=== PATIENT | female | born 1945 | race Asian ===

== ENCOUNTER 2020-03-02 13:38 | Emergency (ER) | payer MEDICARE, OTHER ==
[~2020-03-02] VITALS: Ht 167.6 cm; Wt 69.5 kg
[2020-03-02 13:50] VITALS: BP 126/68
--- NOTE | 2020-03-02 14:21 | PHYS DOC ---
Past History Past Medical History: Cancer, Diabetes, Hypertension Past Surgical History: Cancer Surgery, Other Additional Past Surgical Histo: Right breast cancer Alcohol Use: None Adult General Chief Complaint Chief Complaint: DENTAL PROBLEM HPI HPI Patient is a 74-year-old female presents to the emergency department complaining of pain and a bloody sore to the right side inside of her mouth. Patient states she noticed this at approximately noon today, patient states that she initially felt a lump inside her mouth and pushed it out and noticed some blood come out. Patient states it did not bleed much. Patient is adamant that she did not bite the inside of her cheek when she was eating. Patient states that her pain level is very low according probably a 1/10 on a 1-10 pain scale. Patient denies any shortness of breath, cough, swelling, nasal congestion, cough, chest pain, ear pain, changes in taste or changes in smell. Patient denies any other physical complaints or physical illnesses. Patient denies COVID-19 symptoms and does not wish to be treated or checked today for COVID-19 virus. Review of Systems Review of Systems 14 body systems of review of systems have been reviewed. See HPI for pertinent positives and negative responses, otherwise all other systems are negative, nonpertinent or noncontributory. Current Medications Current Medications Patient reports taking rosuvastatin 10 mg daily, Metformin 500 mg twice daily, metoprolol 75 mg daily, anastrozole 1 mg daily. Allergies Allergies Allergies Coded Allergies Type Severity Reaction Last Updated Verified Penicillins Allergy Unknown 03/02/20 Yes Physical Exam Physical Exam Constitutional: Well developed, well nourished, no acute distress, non-toxic appearance. HENT: Normocephalic, atraumatic, bilateral external ears normal, oropharynx moist, no oral exudates, nose normal. Linear hematoma across right side buccal mucosa without bleeding, no purulent drainage measuring approximately 4 cm horizontal with dentition. Patient has intact nonbroken upper and lower dentures. No swelling appreciated, oropharynx within normal limits, no postnasal drip appreciated. Eyes: PERRLA, EOMI, conjunctiva normal, no discharge. Neck: Normal range of motion, no tenderness, supple, no stridor. Cardiovascular:Heart rate regular rhythm, no murmur Lungs & Thorax: Bilateral breath sounds clear to auscultation Abdomen: Bowel sounds normal, soft, no tenderness, no masses, no pulsatile masses. Skin: Warm, dry, no erythema, no rash. Back: No tenderness, no CVA tenderness. Extremities: No tenderness, no cyanosis, no clubbing, ROM intact, no edema. Neurologic: Alert and oriented X 3, normal motor function, normal sensory function, no focal deficits noted. Psychologic: Affect normal, judgement normal, mood normal. Current Patient Data Vital Signs Vital Signs Date Time Temp Pulse Resp B/P (MAP) Pulse Ox O2 Delivery O2 Flow Rate FiO2 03/02/20 13:50 97.8 84 16 126/68 (87) 97 Room Air EKG EKG [] Radiology/Procedures Radiology/Procedures [] Heart Score Risk Factors: Risk Factors: DM, Current or recent (<one month) smoker, HTN, HLP, family history of CAD, obesity. Risk Scores: Risk Factors: DM, Current or recent (<one month) smoker, HTN, HLP, family history of CAD, obesity. Course & Med Decision Making Course & Med Decision Making Pertinent Labs and Imaging studies reviewed. (See chart for details) 73-year-old female presents emergency department with complaints of feeling a lump in the right side of her cheek that she pushed out and noticed some minor bleeding that had resolved prior to her arrival to the emergency department. Physical examination of oral mucosa on the right buccal mucosa consistent with a bite type trauma however patient adamantly denies biting her in her mouth while eating. Patient states this happened around noon. Patient states this is happened 4 times in her life and she has never been able to find out why this happens. Discussed with patient oral buccal mucosa trauma, using warm salt water swishes and spit over the next few days along with oral ibuprofen for discomfort. Patient is to follow-up with her primary care physician this week for possible referral to a ear nose throat specialist. Patient gave verbal understanding of discharge instructions, discharge medication use, follow-up with primary care physician. Patient was in no pain during exam, patient is safe to be discharged home. Patient had no further questions or concerns. Patient discharged to home without incident. Diagnosis right-sided buccal mucosal oral trauma, low probability of parotid gland stone, unlikely sublingual gland or submandibular gland stone, unlikely infectious process. Dragon Disclaimer Dragon Disclaimer This electronic medical record was generated, in whole or in part, using a voice recognition dictation system. Departure Departure: Impression: Primary Impression: Biting of oral mucosa Disposition: 01 DC HOME SELF CARE/HOMELESS Condition: GOOD Referrals: PCP,UNKNOWN (PCP) Additional Instructions: Please use warm salt water to swish and spit while oral irritation persists, you can use over the counter ibuprofen for oral discomfort, please see your doctor soon for possible referral to ENT specialist. Please return the emergency room for worsening symptoms or other concerns. EMERGENCY DEPARTMENT GENERAL DISCHARGE INSTRUCTIONS Thank you for coming to [facility] (ED) today and trusting us with you care. We trust that you had a positivie experience in our Emergency Department. If you wish to speak to the department management, you may call the director at [phone]. YOUR FOLLOW UP INSTRUCTIONS ARE FOLLOWS: 1. Do you have a private Doctor? If you do not have a private doctor, please ask for a resource list of physicians or clinics that may be able to assist you with follow up care. 2. The Emergency Physician has interpreted your x-rays. The X-Ray specialist will also review them. If there is a change in the findings, you will be notified in 48 hours when at all possible. 3. A lab test or culture has been done, your results will be reviewed and you will be notified if you need a change in treatment. ADDITIONAL INSTRUCTIONS AND INFORMATION: 1. Your care today has been supervised by a physician who is specially trained in emergency care. Many problems require more than one evaluation for a complete diagnosis and treatment. We recommend that you schedule your follow up appointment as recommended to ensure complete treatment of you illness or injury. If you are unable to obtain follow up care and continue to have a problem, or if your condition worsens, we recommend that you return to the ED. 2. We are not able to safely determine your condition over the phone nor are we able to give sound medical advice over the phone. For these safety reasons, if you call for medical advice we will ask you to come to the ED for further evaluation. 3. If you have any questions regarding these discharge instructions please call the ED at [phone]. SAFETY INFORMATION: In the interest of safety, wellness, and injury prevention; we encourage you to wear your sealbelt, if you smoke; quite smoking, and we encourage family to use a protective helmet for bicycling and other sporting events that present an increased risk for head injury. IF YOUR SYMPTOMS WORSEN OR NEW SYMPTOMS DEVELOP, OR YOU HAVE CONCERNS ABOUT YOUR CONDITION; OR IF YOUR CONDITION WORSENS WHILE YOU ARE WAITING FOR YOUR FOLLOW UP APPOINTMENT; EITHER CONTACT YOUR PRIMARY CARE DOCTOR, THE PHYSICIAN WHOSE NAME AND NUMBER YOU WERE GIVEN, OR RETURN TO THE ED IMMEDIATELY. SASHA WALDRON APRN Mar 02, 2020 14:21
== END 2020-03-02 14:26 | disposition home or self-care (01) ==
LOC: ER 13:38
DX: K13.1 Cheek and lip biting (principal); E11.9 Type 2 diabetes mellitus without complications; I10 Essential (primary) hypertension; Z88.0 Allergy status to penicillin
CPT/HCPCS: 99281

== ENCOUNTER 2020-04-01 11:19 | Emergency (ER) | payer MEDICARE, OTHER ==
[~2020-04-01] VITALS: Ht 160 cm; Wt 70.2 kg
[2020-04-01 11:25] VITALS: BP 142/70
[2020-04-01] MEDS ORDERED: CYCLOBENZAPRINE 10 MG TABLET. PO ONE (12:15)
[2020-04-01] MEDS ORDERED: KETOROLAC 60 MG/2 ML VIAL. IM ONE (12:15)
--- NOTE | 2020-04-01 12:49 | PHYS DOC ---
Past History Past Medical History: Cancer, Diabetes, Hypertension Past Surgical History: Cancer Surgery, Other Additional Past Surgical Histo: Right breast cancer Alcohol Use: None General Adult EDM: Chief Complaint: UPPER EXTREMITY PAIN HPI: HPI: Patient is a 74-year-old female who presents with right shoulder pain. Patient states that she has had 2 shoulder surgeries in the past and has chronic pain but today it is worse than usual. Patient reports the pain is in her right shoulder and painful with movement. Patient reports taking Motrin at home with little relief. Patient denies injury. Review of Systems: Review of Systems: Constitutional: Denies fever or chills Eyes: Denies change in visual acuity HENT: Denies nasal congestion or sore throat Respiratory: Denies cough or shortness of breath Cardiovascular: Denies chest pain or edema GI: Denies abdominal pain, nausea, vomiting, bloody stools or diarrhea : Denies dysuria Musculoskeletal: Denies back pain or joint pain, reports right shoulder pain Integument: Denies rash Neurologic: Denies headache, focal weakness or sensory changes Endocrine: Denies polyuria or polydipsia Lymphatic: Denies swollen glands Psychiatric: Denies depression or anxiety Current Medications: Current Meds: Current Medications Medications (Trade) Dose Ordered Sig/Brian Start Time Stop Time Status Last Admin Dose Admin Cyclobenzaprine HCl (Flexeril) 10 mg 1X ONCE 04/01/20 12:15 04/01/20 12:37 DC Ketorolac Tromethamine (Toradol Im) 60 mg 1X ONCE 04/01/20 12:15 04/01/20 12:37 DC Allergies: Allergies: Allergies Coded Allergies Type Severity Reaction Last Updated Verified Penicillins Allergy Unknown 03/02/20 Yes Physical Exam: PE: Constitutional: Well developed, well nourished, no acute distress, non-toxic appearance. [] HENT: Normocephalic, atraumatic, bilateral external ears normal, oropharynx moist, no oral exudates, nose normal. [] Eyes: PERRLA, EOMI, conjunctiva normal, no discharge. [] Neck: Normal range of motion, no tenderness, supple, no stridor. [] Cardiovascular:Heart rate regular rhythm, no murmur [] Lungs & Thorax: Bilateral breath sounds clear to auscultation [] Abdomen: Bowel sounds normal, soft, no tenderness, no masses, no pulsatile masses. [] Skin: Warm, dry, no erythema, no rash. [] Back: No tenderness, no CVA tenderness. [] Extremities: No tenderness, no cyanosis, no clubbing, ROM intact, pain with range of motion to right shoulder Neurologic: Alert and oriented X 3, normal motor function, normal sensory function, no focal deficits noted. [] Psychologic: Affect normal, judgement normal, mood normal. [] Current Patient Data: Vital Signs: Vital Signs Date Time Temp Pulse Resp B/P (MAP) Pulse Ox O2 Delivery O2 Flow Rate FiO2 04/01/20 11:25 98.1 81 16 142/70 (94) 97 Room Air EKG: EKG: [] Radiology/Procedures: Radiology/Procedures: [] Heart Score: Risk Factors: Risk Factors: DM, Current or recent (<one month) smoker, HTN, HLP, family history of CAD, obesity. Risk Scores: Score 0 - 3: 2.5% MACE over next 6 weeks - Discharge Home Score 4 - 6: 20.3% MACE over next 6 weeks - Admit for Clinical Observation Score 7 - 10: 72.7% MACE over next 6 weeks - Early Invasive Strategies Course & Med Decision Making: Course & Med Decision Making Pertinent Labs and Imaging studies reviewed. (See chart for details) [] Patient is a 74-year-old female who presents with right shoulder pain. Patient states that she has had 2 shoulder surgeries in the past and has chronic pain but today it is worse than usual. Patient reports the pain is in her right shoulder and painful with movement. Patient reports taking Motrin at home with little relief. Right shoulder x-ray ordered, Flexeril and Toradol given for pain. Range of motion intact but patient complains of pain with movement. Cap refill less than 2sec. Right shoulder Xray shows, Right reverse total shoulder arthroplasty with questionable loosening at the proximal aspect of the medial humeral component, suboptimally evaluated. Correlate clinically and consider repeat radiographs for further evaluation if indicated. No abnormalities were found on xray, hardware still in place from previous surgery. Please follow-up with Ortho for further evaluation. At home use ice to area of discomfort and continue to use ibuprofen and Tylenol for pain. Dragon Disclaimer: Dragon Disclaimer: This electronic medical record was generated, in whole or in part, using a voice recognition dictation system. Departure Departure: Impression: Primary Impression: Right shoulder pain Qualified Codes: M25.511 - Pain in right shoulder; G89.29 - Other chronic pain Disposition: 01 DC HOME SELF CARE/HOMELESS Condition: GOOD Referrals: PCP,UNKNOWN (PCP) Patient Instructions: Shoulder Pain, [id number] Additional Instructions: We did an x-ray today of your right shoulder. No abnormalities were found. Please follow-up with Ortho for further evaluation. At home use ice to area of discomfort and continue to use ibuprofen and Tylenol for pain. EMERGENCY DEPARTMENT GENERAL DISCHARGE INSTRUCTIONS Thank you for coming to [facility] (ED) today and trusting us with you care. We trust that you had a positivie experience in our Emergency Department. If you wish to speak to the department management, you may call the director at [phone]. YOUR FOLLOW UP INSTRUCTIONS ARE FOLLOWS: 1. Do you have a private Doctor? If you do not have a private doctor, please ask for a resource list of physicians or clinics that may be able to assist you with follow up care. 2. The Emergency Physician has interpreted your x-rays. The X-Ray specialist will also review them. If there is a change in the findings, you will be notified in 48 hours when at all possible. 3. A lab test or culture has been done, your results will be reviewed and you will be notified if you need a change in treatment. ADDITIONAL INSTRUCTIONS AND INFORMATION: 1. Your care today has been supervised by a physician who is specially trained in emergency care. Many problems require more than one evaluation for a complete diagnosis and treatment. We recommend that you schedule your follow up appointment as recommended to ensure complete treatment of you illness or injury. If you are unable to obtain follow up care and continue to have a problem, or if your condition worsens, we recommend that you return to the ED. 2. We are not able to safely determine your condition over the phone nor are we able to give sound medical advice over the phone. For these safety reasons, if you call for medical advice we will ask you to come to the ED for further evaluation. 3. If you have any questions regarding these discharge instructions please call the ED at [phone]. SAFETY INFORMATION: In the interest of safety, wellness, and injury prevention; we encourage you to wear your sealbelt, if you smoke; quite smoking, and we encourage family to use a protective helmet for bicycling and other sporting events that present an increased risk for head injury. IF YOUR SYMPTOMS WORSEN OR NEW SYMPTOMS DEVELOP, OR YOU HAVE CONCERNS ABOUT YOUR CONDITION; OR IF YOUR CONDITION WORSENS WHILE YOU ARE WAITING FOR YOUR FOLLOW UP APPOINT MENT; EITHER CONTACT YOUR PRIMARY CARE DOCTOR, THE PHYSICIAN WHOSE NAME AND NUMBER YOU WERE GIVEN, OR RETURN TO THE ED IMMEDIATELY. Scripts Cyclobenzaprine Hcl (CYCLOBENZAPRINE HCL) 10 Mg Tablet 10 MG PO TID PRN for muscle pain, #15 TAB Prov: LUIS MAYES APRN 04/01/20 LUIS MAYES APRN Apr 01, 2020 12:49
--- NOTE | 2020-04-01 13:23 | RAD ---
EXAMINATION: XR SHOULDER_RIGHT 2+ VIEWS CLINICAL HISTORY: Reason: SHOULDER PAIN / Spl. Instructions: / History: TECHNIQUE: XR SHOULDER_RIGHT 2+ VIEWS Number of Images/Views: 3 COMPARISON: None FINDINGS: Limited evaluation secondary to suboptimal patient positioning. Visualized portions of the reverse to ann shoulder arthroplasty appear intact with no evidence of dislocation. Lucency suggested at the bon e prosthesis interface along the medial proximal humeral component, but this is incompletely evaluate d. Metaglene and screws poorly evaluated. No acute fracture. Mild acromioclavicular degenerative mauricio ges. Right axillary surgical clips. IMPRESSION: Right reverse total shoulder arthroplasty with questionable loosening at the proximal aspect of the m edial humeral component, suboptimally evaluated. Correlate clinically and consider repeat radiographs for further evaluation if indicated. Electronically signed by: Erik Noriega DO (04/01/2020 1:20 PM) TUCKER
[2020-04-01] MEDS ORDERED: CYCL-331 PO (13:54)
== END 2020-04-01 13:57 | disposition home or self-care (01) ==
LOC: ER 11:19
DX: M25.511 Pain in right shoulder (principal); G89.29 Other chronic pain; I10 Essential (primary) hypertension; E11.9 Type 2 diabetes mellitus without complications; Z88.0 Allergy status to penicillin
CPT/HCPCS: 73030; 96372; 99283; J1885

== ENCOUNTER 2020-05-24 10:54 | Emergency (ER) | payer MEDICARE, OTHER ==
[~2020-05-24] VITALS: Ht 160 cm; Wt 70.2 kg
[~2020-05-24 10:54] MED LIST: CYCL-331 PO
[2020-05-24 11:00] VITALS: BP 143/74
--- NOTE | 2020-05-24 12:24 | PHYS DOC ---
Past History Past Medical History: Cancer, Diabetes, High Cholesterol, Hypertension Past Surgical History: Cancer Surgery, Other Additional Past Surgical Histo: R. MASTECTOMY Alcohol Use: None Adult General Chief Complaint Chief Complaint: RING REMOVAL [facility] Patient is a 74-year-old female who presents to the emergency room complaining of ring stuck on her finger. She states that sometimes her hand swells due to arthritis. She has no other complaints. She just would like the ring removed. Review of Systems Review of Systems Complete ROS is negative unless otherwise documented in HPI Allergies Allergies Allergies Coded Allergies Type Severity Reaction Last Updated Verified Penicillins Allergy Unknown 05/24/20 Yes Physical Exam Physical Exam General: Awake, alert, NAD. Well Nourished, well hydrated. Cooperative HEENT: Atraumatic, EOMI, PERRL, airway patent, moist oral mucosa Neck: Supple, trachea midline Respiratory: CTA bilaterally, normal effort, no wheezing/crackles CV: RRR, no murmur, cap refill <2 GI: Soft, nondistended, nontender, no masses MSK: Minor swelling to the hand with ring in place Skin: Warm, dry, intact Neuro: A&O x3, speech NL, sensory and motor grossly intact, no focal deficits Psych: Normal affect, normal mood, not suicidal or homicidal Current Patient Data Vital Signs Vital Signs Date Time Temp Pulse Resp B/P (MAP) Pulse Ox O2 Delivery O2 Flow Rate FiO2 05/24/20 11:00 98.5 84 18 143/74 (97) 96 Room Air EKG EKG [] Radiology/Procedures Radiology/Procedures [] Heart Score Risk Factors: Risk Factors: DM, Current or recent (<one month) smoker, HTN, HLP, family history of CAD, obesity. Risk Scores: Risk Factors: DM, Current or recent (<one month) smoker, HTN, HLP, family history of CAD, obesity. Course & Med Decision Making Course & Med Decision Making Pertinent Labs and Imaging studies reviewed. (See chart for details) And was removed. Hand appears normal. Patient has full range of motion and no skin degradation. Patient's test results and vitals while in the ED were fully reviewed and discussed with the patient. Patient is stable and at this time does not need admission to the hospital. We have discussed strict return precautions and the importance of following up with their Primary Care Physician. Patient stated understanding and was given an opportunity to ask any questions. Patient is in agreement with plan. Dragon Disclaimer Dragon Disclaimer This electronic medical record was generated, in whole or in part, using a voice recognition dictation system. Departure Departure: Impression: Primary Impression: External constriction of finger Disposition: 01 DC HOME SELF CARE/HOMELESS Condition: STABLE Referrals: PCP,UNKNOWN (PCP) Additional Instructions: You were seen today for ring removal. MADELINE ALBRECHT MD May 24, 2020 12:24
== END 2020-05-24 12:35 | disposition home or self-care (01) ==
LOC: ER 10:54
DX: S60.445A External constriction of left ring finger, initial encounter (principal); E11.9 Type 2 diabetes mellitus without complications; E78.00 Pure hypercholesterolemia, unspecified; I10 Essential (primary) hypertension; Z85.9 Personal history of malignant neoplasm, unspecified; Z98.890 Other specified postprocedural states; Z88.0 Allergy status to penicillin; X58.XXXA Exposure to other specified factors, initial encounter; Y93.89 Activity, other specified; Y92.89 Other specified places as the place of occurrence of the external cause; Y99.8 Other external cause status
CPT/HCPCS: 99281

== ENCOUNTER 2020-10-19 16:47 | Emergency (ER) | payer MEDICARE, OTHER ==
[~2020-10-19] VITALS: Ht 167.6 cm; Wt 68.5 kg
[2020-10-19 17:21] VITALS: BP 146/68
--- NOTE | 2020-10-19 17:43 | PHYS DOC ---
Past History Past Medical History: Cancer, Diabetes, High Cholesterol, Hypertension Additional Past Medical Histor: C SECTION, HYSTER APPY Past Surgical History: Appendectomy, Cancer Surgery, Hysterectomy Additional Past Surgical Histo: R. MASTECTOMY Alcohol Use: None General Adult EDM: Chief Complaint: DENTAL PROBLEM HPI: HPI: Patient is a 75-year-old female coming in for Concerns over bleeding and soreness over her right buccal mucosa. Patient states she felt some swelling and was squeezing it and expressed some dark blood and blood clots. Denies any injury. Says she has had this happen several times in her life but is unclear whether she has ever been checked out for. Patient d oes not speak Ecuadorean well and history is somewhat limited. Patient has a primary care provider but cannot get into them for 5 to 6 days and was concerned that she was having a stroke due to a family history of stroke. Patient currently has dentures and denies grinding her teeth at night. Patient states symptoms have started even prior to having dentures. Review of Systems: Review of Systems: All other systems within normal limits except for as noted in the HPI Allergies: Allergies: Allergies Coded Allergies Type Severity Reaction Last Updated Verified Penicillins Allergy Unknown 05/24/20 Yes Physical Exam: PE: Constitutional: Well developed, well nourished, no acute distress, non-toxic appearance. [] HENT: Normocephalic, atraumatic, bilateral external ears normal, nose normal. No swelling or mass in right buccal mucosa, bruising on mucosa without any signs of active bleeding, blood clots, or purulent drainage. [] Eyes: PERRLA, conjunctiva normal, no discharge. [] Neck: No rigidity, supple, no stridor. [] Cardiovascular: Regular rate and rhythm, brisk cap refill [] Lungs & Thorax: Non labored symmetric respirations, no tachypnea or respiratory distress [] Abdomen: Soft, nondistended. Skin: Warm, dry, no erythema, no rash. [] Back: Unremarkable Extremities: No deformities, range of motion grossly intact, no lower extremity edema [] Neurologic: Alert and oriented X 3, no focal deficits noted. [] Psychologic: Affect normal, judgement normal, mood normal. [] Current Patient Data: Vital Signs: Vital Signs Date Time Temp Pulse Resp B/P (MAP) Pulse Ox O2 Delivery O2 Flow Rate FiO2 10/19/20 17:21 97.9 20 146/68 97 Room Air EKG: EKG: [] Radiology/Procedures: Radiology/Procedures: [] Heart Score: C/O Chest Pain: No Risk Factors: Risk Factors: DM, Current or recent (<one month) smoker, HTN, HLP, family history of CAD, obesity. Risk Scores: Score 0 - 3: 2.5% MACE over next 6 weeks - Discharge Home Score 4 - 6: 20.3% MACE over next 6 weeks - Admit for Clinical Observation Score 7 - 10: 72.7% MACE over next 6 weeks - Early Invasive Strategies Course & Med Decision Making: Course & Med Decision Making Reassured patient that she is not having a stroke. Discussed follow-up with primary care for possible biopsy when lesion returns, and that likely accidental trauma from biting mucosa. Dragon Disclaimer: Dragon Disclaimer: This electronic medical record was generated, in whole or in part, using a voice recognition dictation system. Departure Departure: Impression: Primary Impression: Mucosal bleeding Disposition: HOME / SELF CARE / HOMELESS Condition: STABLE Referrals: PCP,UNKNOWN (PCP) Patient Instructions: Mouth Injury, Generic Additional Instructions: Follow-up with your primary care provider or possibly dentist for possible biopsy to identify any underlying pathology in the tissue IMER WILLIAMSON MD Oct 19, 2020 17:43
== END 2020-10-19 17:58 | disposition home or self-care (01) ==
LOC: ER 16:47
DX: R04.89 Hemorrhage from other sites in respiratory passages (principal); E11.9 Type 2 diabetes mellitus without complications; E78.00 Pure hypercholesterolemia, unspecified; I10 Essential (primary) hypertension; Z88.0 Allergy status to penicillin
CPT/HCPCS: 99281

== ENCOUNTER → 2021-01-19 | Outpatient (CLI) | payer MEDICARE, OTHER ==
[~2021-01-19] MED LIST changes: +ALBU2.5V8 IH; +BENZ200C47 PO; -CYCL-331 PO; +CYCL10TA19 PO; +PRED20TA PO
--- NOTE | 2021-01-19 14:28 | RAD ---
EXAM: Left hand, 3 views. HISTORY: Pain. COMPARISON: None. FINDINGS: 3 views of the left hand are obtained. There is no acute fracture, dislocation or subluxati on. There is a chronic corticated ossicle at the base of the first distal phalanx, likely due to a ch ronic fragmented spur. There is mild degenerative spurring involving the fourth distal interphalangea l joint. IMPRESSION: No acute osseous finding. Electronically signed by: Aarti Cain MD (01/19/2021 2:26 PM) [id number]
== END ==
LOC: RAD 13:46
PROVIDERS: ATTEND Family Medicine
DX: M77.8 Other enthesopathies, not elsewhere classified (principal); M25.442 Effusion, left hand
CPT/HCPCS: 73130

== ENCOUNTER 2021-01-29 00:21 | Emergency (ER) | payer MEDICARE, OTHER ==
[~2021-01-29] VITALS: Ht 167.6 cm; Wt 68.5 kg
[~2021-01-29 00:21] MED LIST changes: -ALBU2.5V8 IH; -BENZ200C47 PO; -PRED20TA PO
--- NOTE | 2021-01-29 00:34 | PHYS DOC ---
Past History Past Medical History: Cancer, Diabetes, High Cholesterol, Hypertension Additional Past Medical Histor: C SECTION, HYSTER APPY Past Surgical History: Appendectomy, Cancer Surgery, , Hysterectomy Additional Past Surgical Histo: R. MASTECTOMY Alcohol Use: None General Adult EDM: Chief Complaint: CHEST PAIN HPI: HPI: Patient is a [age] year old [sex] who presents with [] Review of Systems: Review of Systems: Constitutional: Denies fever or chills Eyes: Denies redness or eye pain HENT: Denies nasal congestion or sore throat Respiratory: Denies cough or shortness of breath Cardiovascular: Denies chest pain or palpitations GI: Denies abdominal pain, nausea, or vomiting : Denies dysuria or hematuria Musculoskeletal: Denies back pain or joint pain Integument: Denies rash or skin lesions Neurologic: Denies headache, focal weakness or sensory changes Complete systems were reviewed and found to be within normal limits, except as documented in this note. Current Medications: Current Meds: Current Medications Medications (Trade) Dose Ordered Sig/Brian Start Time Stop Time Status Last Admin Dose Admin Aspirin (John Aspirin) 325 mg 1X ONCE 01/29/21 00:30 01/29/21 00:31 UNV Fentanyl Citrate (Fentanyl 2ml Vial) 25 mcg 1X ONCE 01/29/21 00:30 01/29/21 00:31 UNV Sodium Chloride 1,000 ml @ 1,000 mls/hr 1X ONCE 01/29/21 00:30 01/29/21 01:29 UNV Allergies: Allergies: Allergies Coded Allergies Type Severity Reaction Last Updated Verified Penicillins Allergy Unknown 05/24/20 Yes Physical Exam: PE: Constitutional: Well developed, well nourished, no acute distress, non-toxic appearance HENT: Normocephalic, atraumatic Eyes: PERRL, EOMI, conjunctiva normal, no discharge Neck: Normal range of motion, no tenderness, supple Lungs & Thorax: No respiratory distress, equal chest rise and fall Abdomen: Soft, no tenderness Skin: Warm, dry, no erythema, no rash Back: No tenderness, no CVA tenderness Extremities: No tenderness, ROM intact, no edema Neurologic: Alert and oriented X 3, normal motor function, normal sensory function, no focal deficits noted Psychologic: Affect normal, judgment normal Current Patient Data: Vital Signs: Vital Signs Date Time Temp Pulse Resp B/P (MAP) Pulse Ox O2 Delivery O2 Flow Rate FiO2 01/29/21 00:24 97.9 93 24 161/77 (105) 100 Room Air EKG: EKG: @0025 NSR at 90bpm, NO ST elevation, QRS 92ms, QT/QTc 384/474ms, baseline artifact noted to I-aVF. @0110 NSR at 92bpm, NO ST elevation, QRS 94ms, QT/QTc 370/463ms, baseline artifact again noted to I-aVF, no significant change from prior Radiology/Procedures: Radiology/Procedures: PROCEDURE: CT ANGIOGRAPHY CHEST PQRS Compliance Statement: One or more of the following individualized dose reduction techniques were utilized for this examination: 1. Automated exposure control 2. Adjustment of the mA and/or kV according to patient size 3. Use of iterative reconstruction technique CTA CHEST 01/29/2021 1:11 AM INDICATION: Right chest pain, pleuritic COMPARISON: None available TECHNIQUE: Axial CT images of the chest were obtained after the intravenous administration of nonionic contrast. Coronal and sagittal reformats are provided. Maximum intensity projection images of the thoracic vasculature are provided. FINDINGS: The thyroid gland is normal in appearance. There are no pathologically enlarged axillary, mediastinal or hilar lymph nodes. Calcified mediastinal and right hilar lymph nodes suggest sequela prior granulomatous exposure. The heart size is within normal limits. No significant pericardial effusion. Thoracic aorta is normal in course and caliber. Calcified plaque identified along the thoracic aorta. There is adequate opacification of the pulmonary arterial system. There there are no filling defects within the pulmonary arterial system to suggest acute or chronic pulmonary embolus. 7 mm solid noncalcified pulmonary nodule identified left costophrenic angle laterally (series 6, image 104). 9 mm groundglass nodule identified within the left upper lobe major fissure (series 6, image 37). There are no pulmonary in filtrates. There are no pleural effusions. Mild interstitial prominence noted. No pneumothorax. Calcified pleural plaques suggestive sequela of prior asbestos exposure. Visualized portions of the upper abdomen are within normal limits. Right shoulder arthroplasty changes are present. IMPRESSION: There is no evidence for acute or chronic pulmonary embolism. 7 mm solid noncalcified pulmonary nodule identified in the lateral left lower lobe. Fleischner guidelines for incidentally detected pulmonary nodules suggests CT chest at 3-6 months, then consider CT at 18-24 months for multiple solid noncalcified pulmonary nodules 6-8 mm in size. Mild bronchial wall thickening compatible with nonspecific bronchitis. Mild interstitial prominence may reflect mild developing interstitial edema versus interstitial pneumonitis. Calcified pleural plaques suggestive of sequela prior asbestos exposure. Electronically signed by: Michelle Dupree MD (01/29/2021 1:57 AM) [facility] Heart Score: C/O Chest Pain: Yes HEART Score for Chest Pain: HEART Score for Chest Pain Response (Comments) Value History Slighlty/Non-Suspicious 0 ECG Normal 0 Age > 65 2 Risk Factors 1 or 2 Risk Factors 1 Troponin < Normal Limit 0 Total 3 Risk Factors: Risk Factors: DM, Current or recent (<one month) smoker, HTN, HLP, family history of CAD, obesity. Risk Scores: Score 0 - 3: 2.5% MACE over next 6 weeks - Discharge Home Score 4 - 6: 20.3% MACE over next 6 weeks - Admit for Clinical Observation Score 7 - 10: 72.7% MACE over next 6 weeks - Early Invasive Strategies Course & Med Decision Making: Course & Med Decision Making Pertinent Labs and Imaging studies reviewed. (See chart for details) Patient stable for discharge with outpatient follow-up with PCP. Discussed findings and plan with patient and family, who acknowledge understanding and agreement. Mary Grace Disclaimer: Mary Grace Disclaimer: This electronic medical record was generated, in whole or in part, using a voice recognition dictation system. Departure Departure: Impression: Primary Impression: Atypical chest pain Additional Impressions: Bronchitis Hypokalemia Pulmonary nodule Disposition: HOME / SELF CARE / HOMELESS Condition: STABLE Referrals: PCP,UNKNOWN (PCP) Patient Instructions: Acute Bronchitis, [id number]-Iult, Chest Pain (Nonspecific), [id number], Hypokalemia, Potassium Content of Foods, Pulmonary Nodule, [id number] Additional Instructions: Increase diet to include foods that are rich in potassium. Please have your provider recheck your potassium levels. You have also been given a copy of your CT results regarding a pulmonary nodule noted on your imaging. This will require future re-evaluation. Please give copy to your family physician for future re-imaging. Scripts Benzonatate (BENZONATATE) 200 Mg Capsule 1 CAP PO PRN TID PRN for cough, #30 CAP 0 Refills Prov: SASHA BIRMINGHAM DO 01/29/21 Albuterol Sulfate (PROAIR HFA INHALER) 8.5 Gm Hfa.aer.ad 2 PUFF IH PRN Q4-6HRS PRN for wheezing, #1 INHALER 0 Refills Prov: SASHA BIRMINGHAM DO 01/29/21 Prednisone (PREDNISONE) 20 Mg Tablet 2 TAB PO DAILY for Bronchitis for 4 Days, #8 TAB Start this prescription tomorrow, Tuesday01/30/21 Prov: SASHA BIRMINGHAM DO 01/29/21 SASHA BIRMINGHAM DO Jan 29, 2021 00:34
[2021-01-29] MEDS ORDERED: CONTRAST GIVEN. MC PRN (00:45)
[2021-01-29 00:55] LABS: BASO % 1 % (0-3); EOS # 0.2 x10^3/uL (0.0-0.7); EOS % 3 % (0-3); HEMATOCRIT 39.9 % (36.0-47.0); LYMPH # 2.6 x10^3/uL (1.0-4.8); LYMPH % 42 % (24-48); MEAN CORPUSCULAR HEMOGLOBIN 29 pg (25-35); MEAN CORPUSCULAR HGB CONC 33 g/dL (31-37); MEAN CORPUSCULAR VOLUME 88 fL (79-100); MONO # 0.6 x10^3/uL (0.0-1.1); MONO % 10 % (0-9); NEUT # 2.8 x10^3uL (1.8-7.7); NEUT % 45 % (31-73); PLATELET COUNT 181 x10^3/uL (140-400); RED BLOOD COUNT 4.53 x10^6/uL (3.50-5.40); RED CELL DISTRIBUTION WIDTH 13.6 % (11.5-14.5); WHITE BLOOD COUNT 6.2 x10^3/uL (4.0-11.0)
[2021-01-29] MEDS ORDERED: IOHEXOL 350 MG/ML 100 ML VIAL. IV ONE (01:00)
[2021-01-29] MEDS ORDERED: IV NORMAL SALINE 1,000ML 1,000 ML IV ONE (01:00)
[2021-01-29] MEDS ORDERED: ASPIRIN 325 MG TABLET PO ONE (01:00)
[2021-01-29 01:03] LABS: CALCIUM 8.6 mg/dL (8.5-10.1); CREATININE 0.6 mg/dL (0.6-1.0); GFR 97.7; POTASSIUM 3.1 mmol/L (3.5-5.1)
[2021-01-29 01:12] LABS: BILIRUBIN,URINE NEG (NEG); CLARITY,URINE CLEAR; COLOR,URINE YELLOW; GLUCOSE,URINE NEG (NEG)
[2021-01-29 01:13] LABS: BACTERIA,URINE 0 /HPF (0-FEW); NITRITE,URINE NEG (NEG); RBC,URINE OCC /HPF (0-2); SQUAMOUS EPITHELIAL CELL,UR OCC /LPF; UROBILINOGEN,URINE 0.2 mg/dL (0.2 mg/dL); WBC,URINE 0 /HPF (0-4)
[2021-01-29 01:21] LABS: ALBUMIN 3.8 g/dL (3.4-5.0); ALBUMIN/GLOBULIN RATIO 1.1 (1.0-1.7); MAGNESIUM 2.1 mg/dL (1.8-2.4); TOTAL BILIRUBIN 0.4 mg/dL (0.2-1.0); TOTAL PROTEIN 7.4 g/dL (6.4-8.2)
--- NOTE | 2021-01-29 01:21 | EKG ---
[address] [address] Test Date: 2021-01-29 Test Time: 01:10:05 Pat Name: DARWIN HERRERA Department: Room: Gender: F Ocular Care Technologist: LUÍS : 1945 Requested By: SASHA BIRMINGHAM Order Number: [id number] Reading MD: Noah Perdue Measurements Intervals [place] Rate: 92 P: 78 IN: 142 QRS: 0 QRSD: 94 T: 32 QT: 370 QTc: 463 Interpretive Statements SINUS RHYTHM LEFTWARD AXIS T ABNORMALITY IN ANTEROSEPTAL LEADS ABNORMAL ECG Electronically Signed On 02-02-2021 10:01:06 TEXTILE MACHINE MAINTENANCE MECHANIC by Noah Perdue
[2021-01-29] MEDS ORDERED: POTASSIUM CHLORIDE 20 MEQ TABLET.ER. PO ONE (01:30)
--- NOTE | 2021-01-29 01:59 | RAD ---
PQRS Compliance Statement: One or more of the following individualized dose reduction techniques were utilized for this examinat ion: 1. Automated exposure control 2. Adjustment of the mA and/or kV according to patient size 3. Use of iterative reconstruction technique CTA CHEST 01/29/2021 1:11 AM INDICATION: Right chest pain, pleuritic COMPARISON: None available TECHNIQUE: Axial CT images of the chest were obtained after the intravenous administration of nonioni c contrast. Coronal and sagittal reformats are provided. Maximum intensity projection images of the t horacic vasculature are provided. FINDINGS: The thyroid gland is normal in appearance. There are no pathologically enlarged axillary, mediastinal or hilar lymph nodes. Calcified mediastinal and right hilar lymph nodes suggest sequela prior granul omatous exposure. The heart size is within normal limits. No significant pericardial effusion. Thorac ic aorta is normal in course and caliber. Calcified plaque identified along the thoracic aorta. There is adequate opacification of the pulmonary arterial system. There there are no filling defects within the pulmonary arterial system to suggest acute or chronic pulmonary embolus. 7 mm solid noncalcified pulmonary nodule identified left costophrenic angle laterally (series 6, imag e 104). 9 mm groundglass nodule identified within the left upper lobe major fissure (series 6, image 37). There are no pulmonary infiltrates. There are no pleural effusions. Mild interstitial prominence noted. No pneumothorax. Calcified pleural plaques suggestive sequela of prior asbestos exposure. Visualized portions of the upper abdomen are within normal limits. Right shoulder arthroplasty change s are present. IMPRESSION: There is no evidence for acute or chronic pulmonary embolism. 7 mm solid noncalcified pulmonary nodule identified in the lateral left lower lobe. Fleischner guidel jes for incidentally detected pulmonary nodules suggests CT chest at 3-6 months, then consider CT at 18-24 months for multiple solid noncalcified pulmonary nodules 6-8 mm in size. Mild bronchial wall thickening compatible with nonspecific bronchitis. Mild interstitial prominence m ay reflect mild developing interstitial edema versus interstitial pneumonitis. Calcified pleural plaques suggestive of sequela prior asbestos exposure. Electronically signed by: Michelle Dupree MD (01/29/2021 1:57 AM) [facility]
[2021-01-29] MEDS ORDERED: PRED20TA PO (02:10)
[2021-01-29] MEDS ORDERED: ALBU2.5V8 IH (02:10)
[2021-01-29] MEDS ORDERED: BENZ200C47 PO (02:12)
[2021-01-29] MEDS ORDERED: DEXAMETHASONE 4 MG TABLET PO ONE (02:30)
[2021-01-29 02:50] VITALS: BP 132/62
--- NOTE | 2021-01-29 04:19 | EKG ---
[address] [address] Test Date: 2021-01-29 Test Time: 00:25:05 Pat Name: DARWIN HERRERA Department: Room: Gender: F Endodontist: LUÍS : 1945 Requested By: SASHA BIRMINGHAM Order Number: [id number] Reading MD: Noah Perdue Measurements Intervals [place] Rate: 90 P: 90 GA: 142 QRS: 5 QRSD: 92 T: 29 QT: 384 QTc: 474 Interpretive Statements SINUS RHYTHM PROLONGED QT RI6.02 No previous ECG available for comparison Electronically Signed On 02-02-2021 10:01:22 DIECAST MACHINE OPERATOR by Noah Perdue
== END 2021-01-29 03:00 | disposition home or self-care (01) ==
LOC: ER 00:21
DX: R07.89 Other chest pain (principal); J40 Bronchitis, not specified as acute or chronic; E87.6 Hypokalemia; R91.1 Solitary pulmonary nodule; E11.9 Type 2 diabetes mellitus without complications; E78.5 Hyperlipidemia, unspecified; I10 Essential (primary) hypertension; Z88.0 Allergy status to penicillin; Z90.710 Acquired absence of both cervix and uterus; Z20.822 Contact with and (suspected) exposure to COVID-19
CPT/HCPCS: 36415; 71275; 80053; 81001; 82553; 83690; 83735; 83880; 84484; 85025; 87426; 93005; 96361; 96374; 99285; C9803; J3010; J7030; J8540; Q9967; U0003

== ENCOUNTER → 2021-07-30 | Outpatient (CLI) | payer MEDICARE, OTHER ==
[~2021-07-30] MED LIST changes: +ALBU2.5V8 IH; +BENZ200C47 PO; +PRED20TA PO
--- NOTE | 2021-07-30 14:00 | RAD ---
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 No peripro sthetic fracture or definite periprosthetic lucency. The questioned area of loosening on the prior ra diograph is less conspicuous today although this could also be due to positioning. Mild acromioclavic ular degenerative changes. There are surgical clips in the right axillary region. Left shoulder: No acute fracture. Alignment is normal. There is mild acromioclavicular and glenohumer al degenerative joint disease. There is subacromial space narrowing. IMPRESSION: 1. Unchanged reverse right total shoulder prosthesis. No definite loosening. The questioned area of l oosening on the prior radiograph is less conspicuous today, although this could also be due to positi oning. Recommend continued attention on follow-up radiograph. 2. 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 Electronically signed by: Janay Shrestha MD (07/30/2021 1:58 PM) [id number]
== END ==
LOC: RAD 09:31
PROVIDERS: ATTEND Orthopaedic Surgery Sports Medicine
DX: M19.012 Primary osteoarthritis, left shoulder (principal); M19.011 Primary osteoarthritis, right shoulder; Z96.611 Presence of right artificial shoulder joint
CPT/HCPCS: 73030-50